=== PATIENT | male | born 1960 | race American Indian/Alaskan Native ===

== ENCOUNTER 2018-04-23 19:34 | Emergency (ER) | payer OTHER ==
[2018-04-23 19:34] VITALS: BMI 27.2
[2018-04-23 19:44] VITALS: TEMP 98
[2018-04-23] MEDS ORDERED: Aspirin 325 mg EC Tablets PO STA (19:55)
[2018-04-23] MEDS ORDERED: Alum-Mag Hydrox-Simethicone Susp (30 mL) PO STA (19:56)
[2018-04-23 20:12] LABS: BASO # 0.1 K/uL (0.0-0.2); BASO % 0.7 % (0.0-2.0); EOS # 0.1 K/uL (0.0-0.7); EOS % 1.1 % (0.0-4.0); HEMOGLOBIN 17.1 g/dL (12.0-18.0); LYMPH # 1.9 K/uL (1.0-4.3); LYMPH % 14.1 % (20.0-40.0); MEAN CELL VOLUME 91.5 fL (80.0-94.0); MEAN CORPUSCULAR HEMOGLOBIN 30.7 pg (27.0-31.0); MEAN CORPUSCULAR HGB CONC 33.6 g/dL (33.0-37.0); MEAN PLATELET VOLUME 10.5 fL (7.2-11.7); MONO # 0.9 K/uL (0.0-0.8); MONO % 6.8 % (0.0-10.0); NEUT # 10.4 K/uL (1.8-7.0); NEUT % 77.3 % (50.0-75.0); NRBC % 0.1 % (0.0-2.0); RBC 5.56 Mil/uL (4.40-5.90); RED CELL DISTRIBUTION WIDTH 13.1 % (11.5-14.5); WHITE BLOOD COUNT 13.5 K/uL (4.8-10.8)
[2018-04-23] MEDS ORDERED: Alum-Mag Hydrox-Simethicone Susp (30 mL) ONE (20:13)
[2018-04-23] MEDS ORDERED: Aspirin 325 mg EC Tablets PO ONE (20:14)
[2018-04-23 20:20] LABS: INR 1.2; PROTHROMBIN TIME 12.7 SECONDS (9.7-12.2)
[2018-04-23 20:24] LABS: BLOOD UREA NITROGEN 16 mg/dL (9-20); CALCIUM 8.6 mg/dl (8.6-10.4); GFR NON-AFRICAN AMERICAN > 60
[2018-04-23 20:25] LABS: ALB/GLOB RATIO 1.4 (1.0-2.1); ALT/SGPT 61 U/L (21-72); AST/SGOT 59 U/L (17-59)
[2018-04-23 20:26] LABS: URINE BILIRUBIN NEGATIVE (NEGATIVE); URINE BLOOD NEGATIVE (NEGATIVE); URINE CLARITY Clear (Clear); URINE COLOR Yellow (YELLOW); URINE GLUCOSE (UA) NORMAL (Normal); URINE LEUKOCYTE ESTERASE NEG Leu/uL (Negative); URINE PROTEIN NEGATIVE (NEGATIVE)
[2018-04-23 20:35] LABS: B-TYPE NATRIURETIC PEPTIDE 31.2 pg/mL (0-900)
--- NOTE | 2018-04-23 20:39 | C.PDOC ---
History Of Present Illness 57 year old male presents to the ED c/o anterior chest discomfort that is reproducible to touch. 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 Patient states he drinks 4-6 40 oz beers a day. Patient has a long histor y of alcohol abuse and recent paracentesis 2 months ago. Patient denies fever, chills, nausea, vomit, weight loss, fall, trauma, weakness, numbness. Time Seen by Provider: 04/23/18 19:45 Chief Complaint (Nursing): Chest Pain History Per: Patient History/Exam Limitations: no limitations Onset/Duration Of Symptoms: Hrs Current Symptoms Are (Timing): Still Present Exacerbating Factors: Movement Alleviating Factors: None Recent travel outside of the [place]: No Additional History Per: Patient Past Medical History Reviewed: Historical Data, Nursing Documentation, Vital Signs Vital Signs: Last Vital Signs Temp 98 F 04/23/18 19:35 Pulse 101 H 04/23/18 19:35 Resp 22 04/23/18 19:35 BP 158/108 H 04/23/18 19:35 Pulse Ox 100 04/23/18 19:35 - Medical History PMH: HTN Denies: Chronic Kidney Disease Surgical History: No Surg Hx Family History: States: Unknown Family Hx - Social History Hx Tobacco Use: Yes Hx Alcohol Use: No Hx Substance Use: Yes (marijuana) - Immunization History Hx Tetanus Toxoid Vaccination: No Hx Influenza Vaccination: No Hx Pneumococcal Vaccination: No Review Of Systems Constitutional: Negative for: Fever, Chills Cardiovascular: Positive for: Chest Pain. Negative for: Palpitations Respiratory: Negative for: Shortness of Breath Gastrointestinal: Negative for: Nausea, Vomiting, Abdominal Pain Musculoskeletal: Negative for: Back Pain Skin: Negative for: Rash Neurological: Negative for: Weakness, Numbness Physical Exam - Physical Exam Appears: Non-toxic, No Acute Distress, Other (obese, black male) Skin: Normal Color, Warm, Dry Head: Atraumatic, Normacephalic Eye(s): bilateral: Normal Inspection, Other (muddy sclera) Oral Mucosa: Moist Teeth: No Normal Dentition (poor dentition) Neck: Normal ROM, Supple, Other (parotid enlargement) Chest: Symmetrical Cardiovascular: Rhythm Regular Respiratory: Normal Breath Sounds, No Rales, No Rhonchi, No Wheezing Gastrointestinal/Abdominal: Soft, No Tenderness, No Guarding, Ascites (questionable ), Other (obese) Extremity: Normal ROM, No Tenderness, No Pedal Edema, No Swelling Neurological/Psych: Oriented x3, Normal Speech, Normal Cognition Gait: Steady ED Course And Treatment - Laboratory Results Result Diagrams: 04/23/18 20:08 04/23/18 20:08 Lab Interpretation: Abnormal (mild leukocytosis, d-dimer neg.) ECG: Interpreted By Me ECG Rhythm: Sinus Rhythm ECG Interpretation: Normal Rate From EC (BPM) O2 Sat by Pulse Oximetry: 100 (ON RA) Pulse Ox Interpretation: Normal - Radiology CXR: Interpreted by Me Reevaluation Time: 21:54 Reassessment Condition: Improved Medical Decision Making Medical Decision Making: Plan: * EKG * Labs * CXR * Asprin 325 mg PO * Librium 50 mg PO * Maalox 30 ml PO * Protonix 40 mg IVP * Toradol 30 mg IVP * UA positional anterior chest wall discomfort Prob costochondritis tylenol max 4g/day considering underlying liver dz EKG, bnp, trop, d-dimer neg argues against cardiac pain not improved with maalox/protonix but pt with high risk for GERD/Gastritis continue protonix and educated on alcohol abuse effects on stomach/liver Alcohol abuse refer to AA Disposition Doctor Will See Patient In The: Office Counseled Patient/Family Regarding: Studies Performed, Diagnosis - Disposition Referrals: Alcoholics Anonymous [Outside] [facility] [Outside] [facility] [Outside] [facility] [Outside] [facility] [Outside] Disposition: HOME/ ROUTINE Disposition Time: 21:56 Condition: GOOD Additional Instructions: chest wall discomfort tylenol 1000 mg every 6 hours as needed no heavy lifting for 1 week GERD: reduce alcohol intake directly increases stomach irritation/gastritis/GERD outpatient follow-up as needed. Instructions: Costochondritis, Chest Pain That Is Not Caused by the Heart (DC) Forms: [employer] ([place]) - Clinical Impression Clinical Impression: Discomfort of chest wall - Scribe Statement The provider has reviewed the documentation as recorded by the Scribe Bryson Anand All medical record entries made by the Scribe were at my direction and personally dictated by me. I have reviewed the chart and agree that the record accurately reflects my personal performance of the history, physical exam, medical decision making, and the department course for this patient. I have also personally directed, reviewed, and agree with the discharge instructions and disposition.
[2018-04-23 20:42] LABS: BARBITURATES, UR NEGATIVE (NEGATIVE); BENZODIAZEPINES, UR NEGATIVE (NEGATIVE); OPIATES, UR NEGATIVE (NEGATIVE); PHENCYCLIDINE, UR NEGATIVE (NEGATIVE)
[2018-04-23 22:28] VITALS: BP 136/79; PULSE 78; RESP 18
[2018-04-24 00:24] VITALS: O2SAT 100
--- NOTE | 2018-04-24 08:56 | RAD ---
Date of service: 04/23/2018 PROCEDURE: CHEST RADIOGRAPH, 1 VIEW HISTORY: SOB COMPARISON: 02/17/2014. FINDINGS: LUNGS: The lungs are well inflated and clear. There is an azygous lobe fissure, an anatomic variant. PLEURA: No pneumothorax or pleural effusion. CARDIOVASCULAR: The heart is normal in size. No aortic atherosclerotic calcifications present. OSSEOUS STRUCTURES: Within normal limits for the patient's age. VISUALIZED UPPER ABDOMEN: Normal. OTHER FINDINGS: None. IMPRESSION: No active pulmonary disease.
--- NOTE | 2018-04-26 13:06 | CARD ---
APPROVED REPORT Date of service: 04/23/2018 EKG Measurement Heart [id number] <Conclusion> Normal sinus rhythm Prolonged QT Abnormal ECG
== END 2018-04-23 22:28 | disposition home or self-care (01) ==
LOC: C.ER 19:34
DX: R07.89 Other chest pain (principal); I10 Essential (primary) hypertension; Z72.0 Tobacco use
CPT/HCPCS: 71045; 80053; 80320; 80324; 80345; 80346; 80349; 80353; 80358; 80361; 81001; 83880; 83992; 84484; 85025; 85378; 85610; 85730; 93005; 96374; 96375; 99284; C9113; J1885